=== PATIENT | female | born 1970 | race Caucasian/White ===

== ENCOUNTER 2017-09-21 16:46 | Emergency (ER) | END 2017-09-21 18:40 | disposition home or self-care (01) ==

== ENCOUNTER 2018-12-27 13:30 | Emergency (ER) | payer MEDICARE, BC ==
[~2018-12-27] VITALS: Ht 177.8 cm; Wt 135.9 kg
[~2018-12-27 13:30] MED LIST: ASPI-481 PO; ASPI-817 PO; ATEN-51 PO; CALC500T91 PO; CEPH-443 PO; D-ME473S2 PO; FLUC150T PO; IBUP-1542 PO; LEVO50TA7 PO; LORA0.5T PO; LURA20TA ORAL; MICO100S4 VG; OMEP20CA17 PO; OMEP20CA9 PO; SULF1TAB31 PO; ZIPR40CA2 PO; ZIPR60CA7 PO
[2018-12-27 13:45] VITALS: Ht 177.8 cm; Wt 135.9 kg
[2018-12-27] MEDS ORDERED: ACETAMINOPHEN 325 MG TAB PO ONE (14:00)
[2018-12-27] MEDS ORDERED: ONDANSETRON 4 MG INJ IV STA (14:24)
[2018-12-27] MEDS ORDERED: IBUPROFEN 600 MG TAB PO ONE (17:30)
[2018-12-27 20:39] VITALS: BP 146/96; PULSE 99; RESP 15
== END 2018-12-27 20:54 | disposition home or self-care (01) ==
LOC: E/R 13:30
DX: B34.9 Viral infection, unspecified (principal); F32.9 Major depressive disorder, single episode, unspecified; R40.2142 Coma scale, eyes open, spontaneous, at arrival to emergency department; R40.2252 Coma scale, best verbal response, oriented, at arrival to emergency department; R07.9 Chest pain, unspecified; R10.9 Unspecified abdominal pain; Z79.82 Long term (current) use of aspirin
CPT/HCPCS: 36415; 71045; 80053; 80307; 81001; 81025; 83605; 84484; 85025; 85610; 85730; 87040; 87086; 93005; 96374; 99285; J2405; 81003